=== PATIENT | female | born 1975 | race Caucasian/White ===

== ENCOUNTER → 2017-04-13 | Outpatient (REF) | payer OTHER | LOC: M LAB REF 18:46 | DX: N93.9 Abnormal uterine and vaginal bleeding, unspecified (principal) ==

== ENCOUNTER 2017-05-19 05:59 | Day surgery (SDC) | payer OTHER ==
[2017-05-19] MEDS ORDERED: LIDOCAINE 1% MDV 20ML VIAL SQ (06:15)
[2017-05-19 06:38] LABS: HEMATOCRIT 39.6 % (36.0-47.0); HEMOGLOBIN 13.1 g/dl (12.0-16.0); MEAN CORPUSCULAR HEMOGLOBIN 30.9 pg (27.0-33.0); MEAN CORPUSCULAR HGB CONC 33.1 g/dl (32.0-36.5); MEAN CORPUSCULAR VOLUME 93.4 fl (80.0-96.0); PLATELET COUNT, AUTOMATED 247 10^3/uL (150-450); RED BLOOD COUNT 4.24 10^6/uL (4.00-5.40); RED CELL DISTRIBUTION WIDTH 12.9 % (11.5-14.5); WHITE BLOOD COUNT 7.1 10^3/uL (4.0-10.0)
[2017-05-19 06:39] LABS: CONTROL LINE HCG INT CTR LINE PRESENT; HCG, SERUM QUALITATIVE NEGATIVE (NEGATIVE)
[2017-05-19] MEDS ORDERED: fentaNYL 100 MCG/2 ML INJECTION (J3010) As Ordered ×2 (07:13→07:55)
[2017-05-19] MEDS ORDERED: PROPOFOL 200 MG/20 ML VIAL As Ordered (07:13)
[2017-05-19] MEDS ORDERED: LIDOCAINE 2% INJ 100 MG/5 ML SDV (FOR ANES.) As Ordered (07:13)
[2017-05-19] MEDS ORDERED: MIDAZOLAM INJ 2 MG/2 ML VIAL (J2250) As Ordered ×2 (07:14→07:37)
[2017-05-19] MEDS: LR 1,000 ML IV (07:16)
[2017-05-19] MEDS: LIDOCAINE 1% SDV INJ 30 ML VIAL As Ordered (07:54)
[2017-05-19] MEDS: SILVER NITRATE APPLICATOR As Ordered (07:54)
[2017-05-19] MEDS ORDERED: KETOROLAC 60 MG/2 ML VIAL (J1885) As Ordered (08:10)
[2017-05-19] MEDS ORDERED: LR 1,000 ML IV (08:45)
[2017-05-19] MEDS ORDERED: fentaNYL 100 MCG/2 ML INJECTION (J3010) IV (08:45)
[2017-05-19] MEDS ORDERED: PERCOCET 5MG/325MG TAB PO (08:45)
[2017-05-19] MEDS ORDERED: ONDANSETRON 4MG/2ML VIAL (J2405) IV (08:45)
== END 2017-05-19 09:12 | disposition home or self-care (01) ==
LOC: M SDC 05:59
DX: N93.9 Abnormal uterine and vaginal bleeding, unspecified (principal); R00.2 Palpitations; F41.9 Anxiety disorder, unspecified; Z88.0 Allergy status to penicillin; Z72.0 Tobacco use; Z98.51 Tubal ligation status
CPT/HCPCS: 58563

== ENCOUNTER → 2017-08-31 | Outpatient (CLI) | payer OTHER | LOC: M EKG 12:48 | DX: R00.2 Palpitations (principal) | CPT/HCPCS: 93005 ==

== ENCOUNTER 2018-03-22 15:41 | Emergency (ER) | payer MEDICAID, OTHER, SELFPAY ==
[~2018-03-22] VITALS: Ht 154.9 cm; Wt 65.9 kg
[2018-03-22 15:41] VITALS: BP 120/78
[~2018-03-22 15:41] MED LIST: MULT1TAB10 PO; OXYC1TAB23 PO
[2018-03-22] MEDS ORDERED: IBUP-1022 PO (16:40)
[2018-03-22] MEDS ORDERED: SKEL800T97 PO (16:40)
== END 2018-03-22 16:57 | disposition home or self-care (01) ==
LOC: M ED 15:41
DX: M54.16 Radiculopathy, lumbar region (principal); F17.210 Nicotine dependence, cigarettes, uncomplicated

== ENCOUNTER → 2018-09-02 | Outpatient (CLI) | payer OTHER ==
[~2018-09-02] MED LIST changes: +IBUP-1022 PO; +SKEL800T97 PO; +TYLETAB14 PO
--- NOTE | 2018-09-02 10:05 | REP ---
PELVIC SONOGRAPHY: HISTORY: Pelvic and perineal pain. FINDINGS: Transabdominal and transvaginal scanning are utilized. Visualized bladder kraft are smooth. Uterine dimensions are normal measured at 8.2 x 4.7 x 5.3 cm. Endometrial echo 0.5 cm thick and centrally placed. Normal size ovaries are seen. Right ovarian dimensions are 2.3 x 2.5 x 2.3 cm. There is a 1.4 cm follicle in the right ovary. Left ovary dimensions are 2.9 x 2.2 x 2.2 cm. No ovarian mass lesion is seen on either side. Doppler flow is normal in both ovaries, resistive indices are 0.46 and 0.53 on the right and left respectively. Uterine myometrial texture is somewhat heterogeneous. No focal uterine mass is seen. IMPRESSION: No significant abnormality. Electronically Signed by Jovanni Silva MD 09/02/2018 03:05 P
== END ==
LOC: M RAD 08:20
PROVIDERS: ATTEND Obstetrics & Gynecology
DX: R10.2 Pelvic and perineal pain (principal)

== ENCOUNTER → 2018-09-13 | Outpatient (REF) | payer OTHER ==
[~2018-09-13] MED LIST changes: +DOXY150C PO
[2018-09-13 15:07] LABS: CHLAMYDIA DNA AMPLIFICATION NEGATIVE (NEGATIVE); GC DNA AMPLIFICATION NEGATIVE (NEGATIVE)
== END ==
LOC: M LAB REF 12:37
PROVIDERS: ATTEND Obstetrics & Gynecology
DX: R10.2 Pelvic and perineal pain (principal)

== ENCOUNTER → 2020-02-20 | Outpatient (CLI) | payer SELFPAY | LOC: M LABSMTC 10:27 | PROVIDERS: ATTEND Pediatrics | DX: Z20.828 Contact with and (suspected) exposure to other viral communicable diseases (principal) ==

== ENCOUNTER → 2021-11-16 | Outpatient (REF) ==
[~2021-11-16] MED LIST changes: -DOXY150C PO; +DOXY150C3 PO
== END ==
LOC: M LABSMTC 10:24
PROVIDERS: ATTEND Family Medicine
DX: Z20.822 Contact with and (suspected) exposure to COVID-19 (principal)